=== PATIENT | female | born 1950 | race Caucasian/White ===

== ENCOUNTER → 2016-11-29 | Outpatient (CLI) | payer OTHER ==
[~2016-11-29] MED LIST: ASPI81TA25 PO; ATEN-173 PO; CHOL100010 PO; OMEG10007 PO
--- NOTE | 2016-11-29 15:55 | MAMMOGRAPHY REPORT ---
BILATERAL DIGITAL SCREENING MAMMOGRAM WITH CAD: 11/29/2016 CLINICAL HISTORY: Routine screening. Patient has no complaints. TECHNIQUE: Bilateral CC and MLO views were obtained. Current study was also evaluated with a Comput er Aided Detection (CAD) system. COMPARISON: Comparison is made to exams dated: 11/15/2015 mammogram, 10/06/2013 mammogram, 11/09/2014 ma mmogram, 10/01/2012 mammogram, 09/29/2011 mammogram, and 09/23/2010 mammogram - [facility] enter. BREAST COMPOSITION: There are scattered areas of fibroglandular density in both breasts. FINDINGS: A linear scar marker overlies the upper outer middle one third of the right breast. There are scattered stable benign-appearing microcalcifications bilaterally. A 5 mm circumscribed mass i n the anterior left breast is unchanged in size of a prior mammograms dating back to at least 2011, therefore likely benign. No new suspicious mass, architectural distortion or cluster of micro calcifications is seen. IMPRESSION: ACR BI-RADS CATEGORY 1: NEGATIVE There is no mammographic evidence of malignancy. A 1 year screening mammogram is recommended. The p atient will receive written notification of the results. Approximately 10% of breast cancers are not detected with mammography. A negative mammographic repor t should not delay biopsy if a clinically suggestive mass is present. Pamela Farnsworth M.D. ay/:11/29/2016 12:38:13 Dairy Farm Operator: Holly SMITH)(Annalee), [facility] letter sent: Normal 1/2 BI-RADS Code: ACR BI-RADS Category 1: Negative
== END | disposition home or self-care (01) ==
LOC: C.MAMM 11:34
PROVIDERS: ATTEND Family Medicine
DX: Z12.31 Encounter for screening mammogram for malignant neoplasm of breast (principal)

== ENCOUNTER → 2017-09-11 | Day surgery (SDC) | payer OTHER ==
[2017-08-14 11:23] VITALS: Ht 170.2 cm; Wt 104.5 kg
[~2017-09-11] VITALS: Ht 170.2 cm; Wt 104.5 kg
[~2017-09-11] MED LIST changes: +ATROPINE SULFATE 0.1 MG/ML 5ML SYR IV PRN; +BUPIVACAINE 0.5 % 5 MG/1 ML PF 10ML VIAL ONE; +CEFAZOLIN 2000MG IV PUSH 10 ML IV SCH; +CHOL1000 PO; -CHOL100010 PO; +FENTANYL CITRATE INJ 50 MCG/1 ML 2 ML VIAL ONE; +LACTATED RINGER'S 1000ML 1,000 ML IV SCH; +LIDOCAINE HCL 1% 20 ML VIAL ONE; +MIDAZOLAM HCL 1 MG/ML 2ML VIAL ONE; +ONDANSETRON INJ 2 MG/ML 2 ML VIAL IV PRN; +OXYCODONE/ACETAMINOPHEN 5-325 TAB PO PRN; +SODIUM CHLORIDE 0.9% 1000ML 1,000 ML IV SCH; +TRAM-10 PO
--- NOTE | 2017-09-11 06:40 | History & Physical Bridge - SC ---
H&P Re-Evaluation Bridge Note: I have examined the patient, reviewed the History & Physical and in the interval since the performance of the History & Physical I have noted the following changes of clinical significance: No changes noted
--- NOTE | 2017-09-11 07:08 | [facility] Post Operative Brief Note ---
Immediate Operative Summary Operative Date Sep 11, 2017. Pre-Operative Diagnosis Right Trigger Ring Finger Post-Operative Diagnosis Same Procedure(s) Performed Right Ring Trigger Finger Release Surgeon Dr. Renetta Bradshaw Webmethods Architect Surgeon(s) Hannah Potter PA-C Estimated Blood Loss 0 Findings as above Specimens None Anesthesia LOCAL IV SEDATION Complication(s) None Disposition
--- NOTE | 2017-09-11 07:12 | Discharge Instructions-SurgCtr ---
Discharge Instructions Date of Service Sep 11, 2017. Visit Reason for Visit: Right Ring Trigger Finger Discharge Discharge Diagnosis / Problem: SAME ABOVE Discharge Goals Goal(s): Decrease discomfort, Improve function Activity Recommendations Activity Limitations: as noted below Lifting Limitations: gradually increase as tolerated Exercise/Sports Limitations: until after follow-up appointment Shower/Bathe: tomorrow Anesthesia . Post Anesthesia Instructions: If you have had General Anesthesia or IV Sedation: * Do not drive today. * Resume driving when surgeon permits. * Do not make important decisions or sign legal documents today. * Call surgeon for: 1. Temperature elevations greater than 101 degrees F. 2. Uncontrollable pain. 3. Excessive bleeding. 4. Persistent nausea and vomiting. 5. Medication intolerance (nausea, vomiting or rash). * For nausea and vomiting use only clear liquids such as: tea, soda, bouillon until nausea subsides, then gradually increase diet as tolerated. * If you have any concerns or questions, call your surgeon's office. If physician is unavailable and it is an emergency, call 911 or go to the nearest emergency room. . Instructions / Follow-Up Instructions / Follow-Up MEDICATIONS: * Resume previous medications unless instructed otherwise by your surgeon. * Always take pain medication on a full stomach or with food to avoid upset stomach. * Do not drink alcohol or drive while taking narcotics. * Ibuprofen or Tylenol may be taken if narcotic not needed. SPECIAL CARE INSTRUCTIONS: __ None _X_ Keep extremity elevated and iced x 48 hours; apply ice 20-30 minutes 8-10 times/day. May remove at night. __ Sling __24 hrs/day __ Remove at night __ Shoulder Immobilizer __ 24 hrs/day __ Remove at night _X_ Dressing __ Maintain until seen in office, may shower with plastic over site _X_ Remove dressings in 24-48 hours and then may shower _X_ Cover incisions with band-aids after showering __ Do not remove steri-strips Call physician if chills or temperature rises above 102 degrees or pain unrelieved by prescribed pain medications at . . Diet Recommendations Home Diet: resume previous diet Procedures Procedures Performed: Right Ring Trigger Finger Release Pending Studies Studies pending at discharge: no Medical Emergencies . Who to Call and When: Medical Emergencies: If at any time you feel your situation is an emergency, please call 911 immediately. . Non-Emergent Contact Non-Emergency issues call your: Primary Care Provider . . "Provider Documentation" section prepared by Von Potter. .
--- NOTE | 2017-09-11 07:31 | Anesthesia Progress Nt - [facility] ---
Anesthesia Post Op Note Date & Time Sep 11, 2017 at 07:30 Vital Signs Pain Intensity: 0 Vital Signs Past 12 Hours Date Time Temp Pulse Resp B/P (MAP) Pulse Ox O2 Delivery O2 Flow Rate FiO2 09/11/17 07:08 36.1 58 16 112/72 (85) 93 Room Air 09/11/17 06:27 36.4 65 16 154/88 (110) 95 Room Air Notes Mental Status: alert / awake / arousable, participated in evaluation Pt Amnestic to Procedure: Yes Nausea / Vomiting: adequately controlled Pain: adequately controlled Airway Patency, RR, SpO2: stable & adequate BP & HR: stable & adequate Hydration State: stable & adequate Anesthetic Complications: no major complications apparent
[2017-09-11 07:33] VITALS: BP 134/87; PULSE 58; O2SAT 94
--- NOTE | 2017-09-11 08:41 | OPERATIVE REPORT ---
DATE OF OPERATION: 09/11/2017 PREOPERATIVE DIAGNOSIS: Right ring trigger finger. POSTOPERATIVE DIAGNOSIS: Same. PROCEDURE PERFORMED: Release of A1 salma, right ring finger. SURGEON: Vernon Bradshaw MD. ASBESTOS PIPE SUPERVISOR: Von Potter PA-C. ANESTHESIOLOGIST: Galo Long MD. ANESTHESIA: Local with IV sedation. DRAINS: None. COMPLICATIONS: None. CONDITION: The patient tolerated the procedure well and returned to the recovery room in apparent satisfactory condition. INDICATIONS FOR SURGERY: Nicolle is a 67-year-old female, who has had triggering of the right ring finger over months now. It has gotten progressively worse and has elected to go ahead and proceed with surgery. Procedure, expected outcomes, side effects, and risks were all explained in detail. DESCRIPTION OF PROCEDURE: The patient was taken to the OR at which time she was placed supine on the operating table, given IV sedation. The right hand was prepped and draped in the usual sterile fashion for surgery. We infiltrated the anticipated incision site with 1% Xylocaine. Once this had taken effect, we went ahead and exsanguinated the hand and put the forearm tourniquet up to 250 mmHg. We then made a transverse incision over the A1 salma using loupe magnification. We dissected down and exposed the A1 salma with an 11 blade and tenotomy scissors were used to divide it. The finger was taken through a range of motion, no longer triggering. The wound then was copiously irrigated. The skin was closed with interrupted 4-0 nylon sutures. Marcaine without epinephrine was placed in the skin edges. Placed a sterile dressing of Xeroform, 2 x 2, Sof-Rol and Coban, and returned to the recovery room in apparent satisfactory condition. I attest to the content of the Intraoperative Record and any orders documented therein. Any exception s are noted below.
== END | disposition home or self-care (01) ==
LOC: X.SURG 06:11
PROVIDERS: ATTEND Orthopaedic Surgery
DX: M65.341 Trigger finger, right ring finger (principal); I10 Essential (primary) hypertension; Z85.6 Personal history of leukemia; M19.90 Unspecified osteoarthritis, unspecified site; Z96.651 Presence of right artificial knee joint; Z98.890 Other specified postprocedural states; Z88.2 Allergy status to sulfonamides; Z88.1 Allergy status to other antibiotic agents

== ENCOUNTER → 2017-11-30 | Outpatient (CLI) | payer OTHER ==
[~2017-11-30] MED LIST changes: -ATROPINE SULFATE 0.1 MG/ML 5ML SYR IV PRN; -BUPIVACAINE 0.5 % 5 MG/1 ML PF 10ML VIAL ONE; -CEFAZOLIN 2000MG IV PUSH 10 ML IV SCH; -FENTANYL CITRATE INJ 50 MCG/1 ML 2 ML VIAL ONE; -LACTATED RINGER'S 1000ML 1,000 ML IV SCH; -LIDOCAINE HCL 1% 20 ML VIAL ONE; -MIDAZOLAM HCL 1 MG/ML 2ML VIAL ONE; -ONDANSETRON INJ 2 MG/ML 2 ML VIAL IV PRN; -OXYCODONE/ACETAMINOPHEN 5-325 TAB PO PRN; -SODIUM CHLORIDE 0.9% 1000ML 1,000 ML IV SCH
--- NOTE | 2017-11-30 15:05 | MAMMOGRAPHY REPORT ---
BILATERAL DIGITAL SCREENING MAMMOGRAM TOMOSYNTHESIS WITH CAD: 11/30/2017 CLINICAL HISTORY: Routine screening. Patient has no complaints. TECHNIQUE: Breast tomosynthesis in addition to standard 2D mammography was performed. Current study was also evaluated with a Computer Aided Detection (CAD) system. COMPARISON: Comparison is made to exams dated: 11/29/2016 mammogram, 11/15/2015 mammogram, 11/09/2014 ma mmogram, 10/06/2013 mammogram, 10/01/2012 mammogram, and 09/29/2011 mammogram - [facility]. BREAST COMPOSITION: There are scattered areas of fibroglandular density in both breasts. FINDINGS: No suspicious masses, calcifications, or areas of architectural distortion are noted in ei ther breast. There has been no significant interval change compared to prior exams. Scattered bilater al benign-appearing calcifications are not significantly changed. A linear scar marker denotes a sca r on the right upper outer breast. Mild bilateral nodularity is stable. IMPRESSION: ACR BI-RADS CATEGORY 2: BENIGN There is no mammographic evidence of malignancy. A 1 year screening mammogram is recommended. The pa tient will receive written notification of the results. Approximately 10% of breast cancers are not detected with mammography. A negative mammographic report should not delay biopsy if a clinically suggestive mass is present. Pamela Dowell M.D. /:11/30/2017 12:53:31 Knot Cutter: Nicole EISENBERG(Geovani)(Annalee)([place]), [facility] letter sent: Normal 1/2 BI-RADS Code: ACR BI-RADS Category 2: Benign
== END | disposition home or self-care (01) ==
LOC: C.MAMM 11:57
PROVIDERS: ATTEND Family Medicine
DX: Z12.31 Encounter for screening mammogram for malignant neoplasm of breast (principal)

== ENCOUNTER 2022-11-16 06:41 | Observation (INO) ==
--- NOTE | 2022-07-14 08:58 | PAT Medication Instructions ---
Medication Instructions Date of Service July 14, 2022 Home Medications atenolol 25 mg tablet 25 mg PO QAM clotrimazole-betamethasone 1 %-0.05 % topical cream 1 applic topical BID PRN ud estradiol 0.01% (0.1 mg/gram) vaginal cream 1 appful vaginal DAILY PRN ud triamcinolone acetonide 0.1 % topical cream 1 applic topical DAILY PRN ud ibuprofen 200 mg capsule (Advil Liqui-Gel) 800 mg PO QAM ASK your surgeon for instructions ibuprofen 200 mg capsule (Advil Liqui-Gel) 800 mg PO QAM STOP taking 24 hours before surgery clotrimazole-betamethasone 1 %-0.05 % topical cream 1 applic topical BID PRN ud estradiol 0.01% (0.1 mg/gram) vaginal cream 1 appful vaginal DAILY PRN ud triamcinolone acetonide 0.1 % topical cream 1 applic topical DAILY PRN ud DO NOT take the morning of surgery atenolol 25 mg tablet 25 mg PO QAM Other Notes If you have any questions please call us at [phone] or [phone] or [phone] or [phone]
--- NOTE | 2022-07-19 10:32 | Anesthesiology Consultation ---
Date of Service July 19, 2022 Assessment & Plan (1) Encounter for pre-operative examination: - PCP clearance 07/05/22 [facility]: "...pre-operative medical clearance...General anesthesia. Hx of problems problems with anesthesia: DENIES. METS: able to walk on 1 city blaock [sic] on flat ground without sob,. Able to ascend 1 flight of stairs without sob...no medical contraindication for the proposed surgery and anesthesia..." - Pt verbalized full understanding to take atenolol DOS, this was also written/corrected on medication instructions provided at today's visit. She correctly repeated this back to myself, denied questions or concerns. - Outpatient joint assessment: Patient is currently scheduled for inpatient pathway. If re-evaluated pending system levels during current pandemic/surgeon requests outpatient pathway, patient is acceptable candidate for outpatient joint program from anesthesia standpoint pending surgeon's office assessment of pt motivation/support/completion of same day joint program preop requirements. Chart Review Chart Review: Acceptable Risk for Surgery and Patient seen in Pre Admission Testing Teaching & Discussion Pre-Anesthesia Teaching/Discussion Notes: Instructed NPO after midnight before surgery, except medications with 15 cc of water. Medication instructions provided according to the PAT guidelines. History Surgery Operation Date: 08/03/22 08:15 Proposed Procedures p Left Total Knee Arthroplasty - Vernon Hoyt MD Height/Weight Height: 5 ft 7 in Weight: 117.2 kg Allergies Allergy/AdvReac Type Severity Reaction Status Date / Time clarithromycin Allergy Intermediate RASH/HIVES Verified 07/14/22 08:03 Iodinated Contrast Media Allergy Intermediate HIVES/ITCHING Verified 07/14/22 08:03 ("CARDIAC CT SCAN DYE") Sulfa (Sulfonamide Allergy Intermediate rash Verified 07/14/22 08:03 Antibiotics) tramadol AdvReac "weird in Verified 07/19/22 10:36 my head" Medications Home Medications Medication Instructions Recorded Confirmed Last Taken atenolol 25 mg tablet 25 mg PO QAM 11/04/18 07/14/22 04/16/19 clotrimazole-betamethasone 1 1 applic topical BID PRN ud 11/02/20 07/14/22 Unknown %-0.05 % topical cream estradiol 0.01% (0.1 mg/gram) 1 appful vaginal DAILY PRN ud 09/30/21 07/14/22 Unknown vaginal cream triamcinolone acetonide 0.1 % 1 applic topical DAILY PRN ud 09/30/21 07/14/22 Unknown topical cream ibuprofen 200 mg capsule (Advil 800 mg PO QAM 04/18/22 07/14/22 Unknown Liqui-Gel) Past Medical History Medical History (Updated 07/19/22 @ 10:37 by [place] Live PA-C) GERD (gastroesophageal reflux disease) controlled, stable per pt History of cardiac murmur as a child No significant valvular disease per 04/2019 DSE 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 Hypertension controlled, stable per pt Pre-diabetes pre-op A1c below 6.5% Sinusitis recently finished abx. residual symptoms of nasal congestion, following with PCP and has upcoming CT 08/01 [facility]. Spinal stenosis L5-S1 Patient denies h/o stroke, seizures, heart attack, heart failure, blood clots or blood transfusions. Exercise / Class Metabolic Activity II 4-5 Yardwork/Stairs/Walk up hill (denies CP or SOB with 1 FOS) Past Family History Family History Brother Family history of diabetes mellitus Sister Family history of diabetes mellitus Breast cancer Mother Stomach cancer History of coronary artery stent placement COPD (chronic obstructive pulmonary disease) Hiatal hernia Father Prostate cancer Other No family history of adverse response to anesthesia Denies family history of Ovarian cancer Myocardial infarction Colorectal cancer Past Surgical History Surgical History (Updated 07/19/22 @ 10:39 by Indiana Live PA-C) History of arthroscopic knee surgery BL History of hand surgery bilat History of knee replacement procedure of right knee History of nasal surgery hx disorder "dissolved cartilage" in childhood, "nose rebuilt" Hx of ventral hernia repair S/P trigger finger release Past Anesthesia History No Hx of Anesthesia Complications and No Family Hx of Anesthesia Complications History of PONV No Hx of PONV and No Hx of Motion Sickness Social History Smoking Status: Never smoker Do You Dip or Chew Tobacco: No Hx Alcohol Use: Yes alcohol intake frequency: holidays/special occasions only Hx Substance Use: No substance use type: does not use Review of Systems Patient denies chest pain, shortness of breath, dyspnea on exertion, snoring, witnessed apneas, fever, chills, cough, wheezing, or palpitations. Physical Exam Vital Signs Vitals BP 128/72 P 80 TEMP 97.6 SP02 96% on RA RESP 18 Physical Full cervical extension range of motion without pain TMD 3.5 finger breadths Mallampati Score 1 Dentition: intact, permanent bridge lower front, multiple caps/crowns; denies chipped or loose teeth or implants Lungs: normal respiratory effort. Clear throughout to auscultation, no adventitious breath sounds Cardiac: regular rate and rhythm, no murmurs noted Carotid arteries: negative bruit bilat Lab Results Anesthesia Preop Results Results Anesthesia Widget: PT 10.3 Seconds (9.0-12.0) 07/19/22 PTT 26.2 Seconds (21.0-31.0) 07/19/22 INR 1.0 (0.9-1.1) 07/19/22 Urine Color Dark Yellow 07/19/22 Urine Appearance Clear (Clear) 07/19/22 Urine pH 6.0 (4.5-7.5) 07/19/22 Urine Specific [place] 1.029 (1.000-1.030) 07/19/22 Urine Protein Negative (Negative) 07/19/22 Urine Glucose (UA) Negative (Negative) 07/19/22 Urine Ketones Negative (Negative) 07/19/22 Urine Blood Negative (Negative) 07/19/22 Urine Nitrite Negative (Negative) 07/19/22 Urine Bilirubin Negative (Negative) 07/19/22 Urine Urobilinogen Negative (Negative) 07/19/22 Urine Leukocyte Esterase 1+ (Negative) H 07/19/22 Urine WBC (Auto) 1-5 /hpf (0-5) 07/19/22 Urine RBC (Auto) 5-10 /hpf (0-4) H 07/19/22 Urine Hyaline Casts (Auto) 1-5 /lpf (0-5) 07/19/22 Urine Epithelial Cells (Auto) >30 /lpf (0-5) H 07/19/22 Urine Bacteria (Auto) Negative (Negative) 07/19/22 Blood Type B Positive 07/19/22 Antibody Screen NEGATIVE 07/19/22 Testing Laboratory Results 07/05/2022 WBC: 9.5 H/H: 15/49 PLATELETS: 278 SODIUM: 139 POTASSIUM: 4.8 CHLORIDE: 100 CO2: 30 BUN: 18 CREATININE: 0.9 GLUCOSE: 86 A1c: 5.7% Electrocardiogram Date: 07/05/22 NSR, rate 76 bpm Stress Test Date: 04/21/19 Pharmacologic MPHR 103% Negative for inducible ischemia EF 55-60% No LV wall motion abnormality Grade I diastolic dysfunction No significant valvular pathology
--- NOTE | 2022-07-20 15:32 | History & Physical Report ---
Date of Service July 20, 2022 Assessment & Plan (1) Left knee DJD: Plan: PRE-OP Diagnosis: Left knee osteoarthritis Planned Procedure: Left total knee arthroplasty Plan: Patient is scheduled to undergo this procedure at the [facility] with a 23-hour observation admission on , August 03, [address] Hoyt. Risks and complications of the procedure such as: Infection, bleeding, pain, scarring, nerve blood vessel damage, weakness, wound problems, stiffness, incomplete relief of symptoms, hardware failure, hardware loosening, wear, fracture, tendon or ligament injury, blood clots, embolism, heart attack, stroke and were explained to the patient at her visit today. Informed consent to perform the procedure was obtained. Patient also understands risks of proceeding with surgical invention during the COVID-19 pandemic. Currently she is asymptomatic and has not been in contact with anyone positive for the virus recently. Patient is scheduled to meet with anesthesia later this morning while there she will obtain a PT/INR, blood type and screen, urinalysis, urine culture and sensitivity and a nasal culture for MRSA. We have already obtained preoperative medical clearance from the patient's primary care provider Dr. Jack. Her CBC, CMP, EKG, hemoglobin A1c are all up-to-date and were ordered by Dr. Jack at her preoperative visit. During today's visit we reviewed the total knee packet. We discussed lectures offered by [facility] in regards to joint replacement surgery. Patient attended one of the sessions before she had her right knee replaced. She states that she has a walker she will bring with her on the day of the procedure. Patient states she already has a handicap placard for her vehicle. We discussed antibiotic use before dental procedures after having joint replacement surgery. Patient states that she will do in-home physical therapy for the first 2 weeks before transitioning to outpatient physical therapy when she meets with me for her 2- week postoperative follow-up visit on August 18 at 1 PM. I advised the patient that she will be kept overnight at the hospital and we will discharge her with prescriptions for narcotic pain medication and anti-inflammatory. We will have her use an 81 mg aspirin twice daily for blood clot prevention for the first 30 days postoperatively. Patient verbalizes understanding of all information provided during today's visit. She thanks for the care that she received. If she has questions or concerns prior to her surgery, she will contact clinic. This chart was completed utilizing [employer] voice recognition software. Grammatical errors, random word insertions, pronoun errors, and in complete sentences are an occasional consequence of the system. Any questions or concerns about the content, text, or information contained within the body of this dictation should be addressed directly to the physician for clarification. History of Present Illness Chief Complaint: Chief Complaint: Left knee pain Primary Care Provider: Eron Jack DO History of Present Illness (including history relevant to procedure): This 71-year-old female presents clinic today for preoperative history and physical. Patient has had pain off and on her left knee for many years. States that about a year ago the pain became much worse. 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 She states that in her free time she did do a lot of walking with which seem to exacerbate her pain and she started to wear a knee brace. Patient states that she has had corticosteroid injections and then physical therapy. She is also used nonsteroidal agents but her knee pain persists. Review Of Systems: A 12 point review of systems is performed and is unremarkable except for those things stated in the HPI and past medical history. Past Medical History: Problems: Mass of right hand Hypertension GERD Ventral hernia Obesity History of leukemia Procedure History Procedure Procedure Date Comments Nasal reconstruction Hernia repair Hand surgery Right total knee arthroplasty Allergies and Sensitivities: iodinated radiocontrast dyes(unknown) traMADol(unknown) sulfa drugs(unknown) Social history: Patient states that she consumes alcohol approximately 1 time per year. She denies tobacco or illicit drug use Family history: Hyperlipidemia, COPD, cancer and leukemia Current Home Meds: (Last Updated 07/19 09:04) atenolol (atenolol 25 mg oral tablet) cholecalciferol (Vitamin D3) Initial Wt: 07/19 118.0 kg 260 lb Allergies Allergy/AdvReac Type Severity Reaction Status Date / Time clarithromycin Allergy Intermediate RASH/HIVES Verified 07/14/22 08:03 Iodinated Contrast Media Allergy Intermediate HIVES/ITCHING Verified 07/14/22 08:03 ("CARDIAC CT SCAN DYE") Sulfa (Sulfonamide Allergy Intermediate rash Verified 07/14/22 08:03 Antibiotics) tramadol AdvReac "weird in Verified 07/19/22 10:36 my head" Home Medications Medication Instructions Recorded Confirmed Type atenolol 25 mg tablet 25 mg PO QAM 11/04/18 07/14/22 History clotrimazole-betamethasone 1 1 applic topical BID PRN ud 11/02/20 07/14/22 History %-0.05 % topical cream estradiol 0.01% (0.1 mg/gram) 1 appful vaginal DAILY PRN ud 09/30/21 07/14/22 History vaginal cream triamcinolone acetonide 0.1 % 1 applic topical DAILY PRN ud 09/30/21 07/14/22 History topical cream ibuprofen 200 mg capsule (Advil 800 mg PO QAM 04/18/22 07/14/22 History Liqui-Gel) Past Med/Surg History Medical History GERD (gastroesophageal reflux disease) controlled, stable per pt History of cardiac murmur as a child No significant valvular disease per 04/2019 DSE 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 Hypertension controlled, stable per pt Pre-diabetes pre-op A1c below 6.5% Sinusitis recently finished abx. residual symptoms of nasal congestion, following with PCP and has upcoming CT 08/01 [facility]. Spinal stenosis L5-S1 Surgical History History of arthroscopic knee surgery BL History of hand surgery bilat History of knee replacement procedure of right knee History of nasal surgery hx disorder "dissolved cartilage" in childhood, "nose rebuilt" Hx of ventral hernia repair S/P trigger finger release Family History Brother Family history of diabetes mellitus Sister Family history of diabetes mellitus Breast cancer Mother Stomach cancer History of coronary artery stent placement COPD (chronic obstructive pulmonary disease) Hiatal hernia Father Prostate cancer Other No family history of adverse response to anesthesia Denies family history of Ovarian cancer Myocardial infarction Colorectal cancer Social History Smoking Status: Never smoker Second Hand Exposure: No; Hx Alcohol Use: Yes Hx Substance Use: No Preferred Language: Bengali Communication Ability: Effective Visual Impairment: No Limitations Hearing Ability: Normal Drilling Plant Operator Required: No Beliefs That Will Affect Care: None marital status: Single Current Living Situation: Alone current occupational status: employed current occupation: self- energy healer Feels Safe at Home: Yes Childhood Exposure to Second-Hand Smoke: Yes Diet Comment: regular Dental Care, Regularly: No Physical Activity Frequency: 5-6 Times per Week Seatbelt Use: always Sunscreen Use: Yes Assistive Devices: Glasses Review of Systems All systems reviewed & are unremarkable except as noted in Subjective Physical Exam Physical Exam: Physical Exam: (relevant to the procedure, including heart and lung evaluation) General: Alert and oriented x3 with proper grooming and hygiene Eyes: Pupils are equal and reactive to light with accommodation. Extraocular lids are intact Throat: Deferred due to COVID-19 precautions Cardiac: Regular rate and rhythm with no murmurs or gallops appreciated Lungs: Clear to auscultation throughout with no wheezing, rales or rhonchi Abdomen: Obese, nondistended, nontender with NABS Extremities: Left knee; range of motion is from 2 degrees of extension to about 110 degrees of flexion. She experiences medial and lateral joint tenderness when knee is palpated in flexed position. There is audible crepitation with passive range of motion. Patient has no laxity with varus or valgus stressing. AP drawer sign Brian test are negative. Her patella is not mobile due to arthritic change within the patellofemoral joint. She has neurovascular intact in the left lower extremity. Neuro: Cranial nerves II through XII intact no motor or sensory deficit Skin: Normal in appearance no open skin areas or discharge Results & Data ([facility]) Diagnostic Findings Studies (relevant to the procedure): X-rays done include 3 views of the left knee. These are compared with her prior films done back in June. She continues to have [id number] arthritis. Perhaps slightly worsened from her previous exam, although could be projectional.
--- NOTE | 2022-10-25 15:55 | History & Physical Report ---
Date of Service October 25, 2022 Assessment & Plan (1) Left knee DJD: Plan: PRE-OP Diagnosis: Left Knee Osteoarthritis Planned Procedure: Left Total Knee Arthroplasty Plan: Patient is scheduled to undergo this procedure at the [facility] with a 23-hour observation admission on , November 16, [address] Hoyt. Risks and complications of the procedure such as: Infection, bleeding, pain, scarring, nerve blood vessel damage, weakness, wound problems, stiffness, incomplete relief of symptoms, hardware failure, hardware loosening, wear, fracture, tendon or ligament injury, blood clots, embolism, heart attack, stroke and were explained to the patient at her visit today. Informed consent to perform the procedure was obtained. Patient also understands risks of proceeding with surgical invention during the COVID-19 pandemic. Currently she is asymptomatic and has not been in contact with anyone positive for the virus recently. Patient is not maintained with anesthesia but we will need to obtain an updated CBC, CMP, PT/INR, urinalysis, urine culture and sensitivity, hemoglobin A1c and a nasal culture for MRSA. We will obtain preoperative medical clearance from the patient primary care provider along with her oral surgeon. During today's visit we reviewed the total knee packet. She states that she has a walker she will bring with her on the day of the procedure. Patient states she already has a handicap placard for her vehicle. We discussed antibiotic use before dental procedures after having joint replacement surgery. Patient states that she will do in-home physical therapy for the first 2 weeks before transitioning to outpatient physical therapy when she meets with me for her 2-week postoperative follow-up visit on November 29, 2022 @ 10:00 AM. I advised the patient that she will be kept overnight at the hospital and we will discharge her with prescriptions for narcotic pain medication and anti-inflammatory. We will have her use an 81 mg aspirin twice daily for blood clot prevention for the first 30 days postoperatively. Patient verbalizes understanding of all information provided during today's visit. She thanks for the care that she received. If she has questions or concerns prior to her surgery, she will contact clinic. This chart was completed utilizing [employer] voice recognition software. Grammatical errors, random word insertions, pronoun errors, and in complete sentences are an occasional consequence of the system. Any questions or concerns about the content, text, or information contained within the body of this dictation should be addressed directly to the physician for clarification. History of Present Illness Chief Complaint: Chief Complaint: Left Knee Pain Primary Care Provider: Eron Jack DO HPI: This 72-year-old female presents clinic today for preoperative history and physical. Patient was initially scheduled to undergo surgery on August 03, 2022 but it was canceled due to her having a dental abscess. Patient has had pain off and on her left knee for many years. States that about a year ago the pain became much worse. 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 Patient states that she has had corticosteroid injections and then physical therapy. She is also used nonsteroidal agents but her knee pain persists. Review Of Systems: A 12 point review of systems is performed and is unremarkable except for those things stated in the HPI and past medical history. Past Medical History: Problems: Mass of right hand Hypertension GERD Ventral hernia Obesity History of leukemia Procedure History Procedure Procedure Date Comments Nasal reconstruction Hernia repair Hand surgery Right total knee arthroplasty Allergies and Sensitivities: iodinated radiocontrast dyes(unknown) traMADol(unknown) sulfa drugs(unknown) Current Home Meds: (Last Updated 10/25 08:54) atenolol (atenolol 25 mg oral tablet) bifidobacterium-lactobacillus (Probiotic Formula oral capsule) cholecalciferol (Vitamin D3) cholecalciferol (Vitamin D3 50 mcg (2000 intl units) oral tablet, chewable) ibuprofen (IBU) 600 mg menaquinone (K2 90 mcg/0.5 mL oral liquid) Allergies Allergy/AdvReac Type Severity Reaction Status Date / Time clarithromycin Allergy Intermediate RASH/HIVES Verified 10/16/22 10:44 Iodinated Contrast Media Allergy Intermediate HIVES/ITCHING Verified 10/16/22 10:44 ("CARDIAC CT SCAN DYE") Sulfa (Sulfonamide Allergy Intermediate rash Verified 10/16/22 10:44 Antibiotics) tramadol AdvReac "weird in Verified 10/16/22 10:44 my head" Home Medications Medication Instructions Recorded Confirmed Type atenolol 25 mg tablet 25 mg PO QAM 11/04/18 10/16/22 History clotrimazole-betamethasone 1 1 applic topical BID PRN ud 11/02/20 10/16/22 History %-0.05 % topical cream estradiol 0.01% (0.1 mg/gram) 1 appful vaginal DAILY PRN ud 09/30/21 10/16/22 History vaginal cream triamcinolone acetonide 0.1 % 1 applic topical DAILY PRN ud 09/30/21 10/16/22 History topical cream ibuprofen 200 mg capsule (Advil 800 mg PO QAM 04/18/22 10/16/22 History Liqui-Gel) calcium-vitamin D3-vitamin K 500 tab PO 10/16/22 10/16/22 History mg-1,000 unit-40 mcg chewable tablet lactobacillus combination no.9 4 4,000 mmu cells PO DAILY 10/16/22 10/16/22 History billion cell capsule (Adult 50 Plus Probiotic) Past Med/Surg History Medical History GERD (gastroesophageal reflux disease) controlled, stable per pt History of cardiac murmur as a child No significant valvular disease per 04/2019 DSE 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 Hypertension controlled, stable per pt Pre-diabetes pre-op A1c below 6.5% Sinusitis recently finished abx. residual symptoms of nasal congestion, following with PCP and has upcoming CT 08/01 [facility]. Spinal stenosis L5-S1 Surgical History History of arthroscopic knee surgery BL History of hand surgery bilat History of knee replacement procedure of right knee History of nasal surgery hx disorder "dissolved cartilage" in childhood, "nose rebuilt" Hx of ventral hernia repair S/P trigger finger release Family History Brother Family history of diabetes mellitus Sister Family history of diabetes mellitus Breast cancer Mother Stomach cancer History of coronary artery stent placement COPD (chronic obstructive pulmonary disease) Hiatal hernia Father Prostate cancer Other No family history of adverse response to anesthesia Denies family history of Ovarian cancer Myocardial infarction Colorectal cancer Social History Smoking Status: Never smoker Second Hand Exposure: No; Hx Alcohol Use: No Hx Substance Use: No Preferred Language: Jordanian Communication Ability: Effective Visual Impairment: No Limitations Hearing Ability: Normal Hot Wire Glass Tube Cutter Required: No Beliefs That Will Affect Care: None marital status: Single Current Living Situation: Alone current occupational status: employed current occupation: self- energy healer Feels Safe at Home: Yes Childhood Exposure to Second-Hand Smoke: Yes Diet Comment: regular Dental Care, Regularly: No Physical Activity Frequency: 5-6 Times per Week Seatbelt Use: always Sunscreen Use: Yes Assistive Devices: Glasses Review of Systems All systems reviewed & are unremarkable except as noted in Subjective Physical Exam Physical Exam: Physical Exam: (relevant to the procedure, including heart and lung evaluation) General: Alert and oriented x3 with proper grooming and hygiene Eyes: Pupils are equal and reactive to light with accommodation. Extraocular lids are intact Throat: Posterior oropharynx clear with some edema, erythema or exudate. Dentition is appropriate. Cardiac: Regular rate and rhythm with no murmurs or gallops appreciated Lungs: Clear to auscultation throughout with no wheezing, rales or rhonchi Abdomen: Obese, nondistended, nontender with NABS Extremities: Left knee; range of motion is from 2 degrees of extension to about 110 degrees of flexion. She experiences medial and lateral joint tenderness when knee is palpated in flexed position. There is audible crepitation with passive range of motion. Patient has no laxity with varus or valgus stressing. AP drawer sign Brian test are negative. Her patella is not mobile due to arthritic change within the patellofemoral joint. She has neurovascular intact in the left lower extremity. Neuro: Cranial nerves II through XII intact no motor or sensory deficit Skin: Normal in appearance no open skin areas or discharge Results & Data ([facility]) Diagnostic Findings Studies (relevant to the procedure): X-rays done include 3 views of the left knee. These are compared with her prior films done back in June. She continues to have [id number] arthritis. Perhaps slightly worsened from her previous exam, although could be projectional.
--- NOTE | 2022-11-09 08:39 | Anesthesiology Consultation ---
Date of Service November 09, 2022 Assessment & Plan (1) Encounter for pre-operative examination: - medical clearance 10/12/22: "...is patient medically cleared for surgery...yes..." - Outpatient joint assessment: Patient is currently scheduled for inpatient pathway. If re-evaluated pending system levels during current pandemic/surgeon requests outpatient pathway, patient is acceptable candidate for outpatient joint program from anesthesia standpoint pending surgeon's office assessment of pt motivation/support/completion of same day joint program preop requirements. - COVID screening: Per scrub woman on 11/09/2022: Travel screen negative, no known COVID-19 positive contacts or current COVID-19 related symptoms in past 2 weeks. To surgeon's discretion if preop COVID testing is needed. Chart Review Chart Review: Acceptable Risk for Surgery and Patient NOT seen in Pre Admission Testing History Surgery Operation Date: 08/03/22 08:15 Proposed Procedures p Left Total Knee Arthroplasty - Vernon Hoyt MD Operation Date: 11/16/22 09:15 Proposed Procedures p Left Total Knee Arthroplasty - Vernon Hoyt MD Height/Weight Height: 5 ft 7 in Weight: 112.945 kg Allergies Allergy/AdvReac Type Severity Reaction Status Date / Time clarithromycin Allergy Intermediate RASH/HIVES Verified 11/09/22 07:58 Iodinated Contrast Media Allergy Intermediate HIVES/ITCHING Verified 11/09/22 07:58 ("CARDIAC CT SCAN DYE") Sulfa (Sulfonamide Allergy Intermediate rash Verified 11/09/22 07:58 Antibiotics) tramadol AdvReac "weird in Verified 11/09/22 07:58 my head" Medications Home Medications Medication Instructions Recorded Confirmed Last Taken atenolol 25 mg tablet 25 mg PO QAM 11/04/18 11/09/22 04/16/19 clotrimazole-betamethasone 1 1 applic topical BID PRN ud 11/02/20 11/09/22 Unknown %-0.05 % topical cream estradiol 0.01% (0.1 mg/gram) 1 appful vaginal DAILY PRN ud 09/30/21 11/09/22 Unknown vaginal cream triamcinolone acetonide 0.1 % 1 applic topical DAILY PRN ud 09/30/21 11/09/22 Unknown topical cream ibuprofen 200 mg capsule (Advil 800 mg PO QAM 04/18/22 11/09/22 Unknown Liqui-Gel) calcium-vitamin D3-vitamin K 500 1 tab PO QAM 10/16/22 11/09/22 Unknown mg-1,000 unit-40 mcg chewable tablet (Citracal-D3 Soft Chew) lactobacillus combination no.9 4 4,000 mmu cells PO DAILY 10/16/22 11/09/22 Unknown billion cell capsule (Adult 50 Plus Probiotic) Medical Marijuana 1 dose PO UD PRN Pain 11/09/22 11/09/22 Unknown amino acids 1 tab PO QAM 11/09/22 11/09/22 Unknown Past Medical History Medical History (Updated 11/09/22 @ 08:32 by [place] Live PA-C) GERD (gastroesophageal reflux disease) controlled, stable per pt History of cardiac murmur as a child No significant valvular disease per 04/2019 DSE 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 Hypertension controlled, stable per pt Pre-diabetes pre-op A1c below 6.5% Sinusitis 07/25 Spinal stenosis L5-S1 Past Family History Family History Brother Family history of diabetes mellitus Sister Family history of diabetes mellitus Breast cancer Mother Stomach cancer History of coronary artery stent placement COPD (chronic obstructive pulmonary disease) Hiatal hernia Father Prostate cancer Other No family history of adverse response to anesthesia Denies family history of Ovarian cancer Myocardial infarction Colorectal cancer Past Surgical History Surgical History History of arthroscopic knee surgery BL History of hand surgery bilat History of knee replacement procedure of right knee History of nasal surgery hx disorder "dissolved cartilage" in childhood, "nose rebuilt" Hx of ventral hernia repair S/P trigger finger release Social History Smoking Status: Never smoker Do You Dip or Chew Tobacco: No Hx Alcohol Use: No alcohol intake frequency: holidays/special occasions only Hx Substance Use: Yes (medical marijuana- oil/tincture- uses prn -advised) substance use type: marijuana Last Used Substance Other:: 11/08/22 Lab Results Anesthesia Preop Results Results Anesthesia Widget: WBC 8.64 K/ul (4.8-10.8) 10/28/22 Hgb 15.7 g/dl (12.0-16.0) 10/28/22 Hct 47.8 % (37.0-47.0) H 10/28/22 Plt 291 K/uL (130-400) 10/28/22 Na 138 mmol/L (136-145) 10/28/22 K 4.0 mmol/L (3.5-5.1) 10/28/22 Cl 102 mmol/L (98-107) 10/28/22 CO2 31 mmol/L (21-32) 10/28/22 BUN 11 mg/dl (6-23) 10/28/22 Creat 0.84 mg/dl (0.6-1.2) 10/28/22 Glucose Level 100 mg/dl (70-99(Fasting)) H 10/28/22 PT 10.2 Seconds (9.0-12.0) 10/28/22 INR 1.0 (0.9-1.1) 10/28/22 HA1c 5.8 % (4.5-5.6) H 10/28/22 Urine Color Yellow 10/28/22 Urine Appearance Clear (Clear) 10/28/22 Urine pH 7.5 (4.5-7.5) 10/28/22 Urine Specific [place] 1.012 (1.000-1.030) 10/28/22 Urine Protein Negative (Negative) 10/28/22 Urine Glucose (UA) Negative (Negative) 10/28/22 Urine Ketones Negative (Negative) 10/28/22 Urine Blood Trace (Negative) H 10/28/22 Urine Nitrite Negative (Negative) 10/28/22 Urine Bilirubin Negative (Negative) 10/28/22 Urine Urobilinogen Negative (Negative) 10/28/22 Urine Leukocyte Esterase Negative (Negative) 10/28/22 Urine WBC (Auto) 0 /hpf (0-5) 10/28/22 Urine RBC (Auto) 0-4 /hpf (0-4) 10/28/22 Urine Hyaline Casts (Auto) 0 /lpf (0-5) 10/28/22 Urine Epithelial Cells (Auto) 5-10 /lpf (0-5) H 10/28/22 Urine Bacteria (Auto) Negative (Negative) 10/28/22 Testing Electrocardiogram Date: 07/05/22 NSR, rate 76 bpm Stress Test Date: 04/21/19 Pharmacologic MPHR 103% Negative for inducible ischemia EF 55-60% No LV wall motion abnormality Grade I diastolic dysfunction No significant valvular pathology
[~2022-11-16 06:41] MED LIST changes: +ACETAMINOPHEN 500 MG TAB PO SCH; -ASPI81TA25 PO; -ATEN-173 PO; +BUPIVACAINE 0.25% PF 30 ML VIAL ONE; +BUPIVACAINE 0.5 % 5 MG/1 ML PF 10ML VIAL ONE; -CHOL1000 PO; +FAMOTIDINE 20 MG TAB PO SCH; +LR 500ML BOLUS, THEN 15ML/HR IV SCH; +LR 60ML/HR IV SCH; -OMEG10007 PO; +ROPIVACAINE 0.5% HCL/PF 150 MG, BUPIVACAINE 0.75% MPF 20 ML, EPINEPHrine 0.15 MG, Ketor... INFIL SCH; +Scopolamine 1 MG TDSY TD SCH; +Scopolamine CHECK PATCH PLACEMENT SCH; -TRAM-10 PO; +TRANEXAMIC ACID 1,000 MG **IV Intra-op IV SCH; +TRANEXAMIC ACID 1,000 MG **IV Pre-op IV SCH; +ceFAZolin 2000MG 2,000 MG/15 ML SYR IV SCH; +dexAMETHasone 4 MG TAB PO SCH
[2022-11-16] MEDS ORDERED: fentaNYL citrate PF 100 MCG/2 ML VIAL ONE (07:36)
[2022-11-16] MEDS ORDERED: PROPOFOL IV EMULSION 10 MG/ML 20 ML VIAL IV ONE ×3 (07:36→10:34)
[2022-11-16] MEDS ORDERED: ONDANSETRON INJ 2 MG/ML 2 ML VIAL ONE (07:36)
[2022-11-16] MEDS ORDERED: MIDAZOLAM HCL 1 MG/ML 2ML VIAL ONE (07:36)
[2022-11-16] MEDS ORDERED: fentaNYL citrate PF 100 MCG/2 ML VIAL IV PRN (08:20)
[2022-11-16] MEDS ORDERED: ePHEDrine sulfate 50 MG/ML AMP IV PRN (08:20)
[2022-11-16] MEDS ORDERED: ONDANSETRON INJ 2 MG/ML 2 ML VIAL IV PRN ×2 (08:20→11:16)
[2022-11-16] MEDS ORDERED: ATROPINE SULFATE 0.1 MG/ML 10ML SYR IV PRN (08:20)
--- NOTE | 2022-11-16 08:43 | History & Physical Bridge Note ---
Date of Service November 16, 2022 History & Physical Bridge Note I have examined the patient, reviewed the History & Physical and in the interval since the performance of the History & Physical I have noted the following changes of clinical significance: no changes noted
[2022-11-16] MEDS ORDERED: ORTHO JOINT ANESTHETIC ONE (09:14)
--- NOTE | 2022-11-16 11:12 | Operative Report ---
Post Operative Report Pre & Post Diagnosis Operation Date: 11/16/22 08:50 Pre-Op Diagnosis: Left Knee Osteoarthritis Post-Op Diagnosis: Left Knee Osteoarthritis I identified the patient and participated in the time-out.: Yes Procedure Operation Date: 11/16/22 08:50 Actual Procedures p Left Total Knee Arthroplasty(Left) - Vernon Hoyt MD Surgeon Vernon Hoyt MD Turkey Picker MELISSA Giraldo PA-C. No resident or fellow was available to assist. Estimated Blood Loss 50 Findings Consistent with Post-Op Diagnosis Specimens Left knee bone and soft tissue contents Anesthesia Type Spinal MAC Complications none Disposition Disposition: Recovery Room Indications 72-year-old female with left knee osteoarthritis refractory to conservative management. X-rays demonstrate tricompartmental osteophyte formation, joint space narrowing, and subchondral sclerosis. I had a long discussion with her about the risks and benefits of surgery, alternatives to surgery, and expected outcomes. After reviewing all these she elected to proceed with surgery. All questions were answered. Informed consent was signed. Description of Procedure Patient was identified in the preoperative holding area where the surgical site, left knee, was marked. Spinal anesthetic was placed by anesthesia. Patient was brought back to the operating room, placed on the operating room table, and IV sedation was administered. A bump was placed underneath the ipsilateral hip. All bony prominences were padded. Perioperative antibiotics and tranexamic acid were administered. Exam under anesthesia was performed. This demonstrated patient's range of motion to be 5 to 105 degrees. She was stable to varus and valgus stress test at 30 degrees. The surgical site was prepped and draped in the normal sterile fashion. Prior to incision a multidisciplinary timeout was called. All in the room were in agreement. We began by exsanguinating the limb with an Esmarch bandage. Tourniquet was inflated to 250 mmHg. A 14 cm long incision was made over the anterior aspect of the knee. I dissected through the subcutaneous tissues to the level of the fascia. Full-thickness flaps were raised above the fascia. A median parapatellar arthrotomy was made. Half the fat pad was excised. A medial release was performed with Bovie electrocautery on the proximal tibia. Synovitis in the knee and suprapatellar pouch was removed. The patella was then everted and held with 2 towel clips. The thickness of the patella was measured at 24 mm. Patellar resection was performed. Caliper showed the patella thickness now to be 14 mm. A size 41 trial was placed and had a great fit. The 3 drill holes were placed then the trial button was placed. The patellar thickness was now 25 mm which I was very happy with. The patellar trial was then removed, and the knee was flexed up. Retractors were placed to protect the MCL and LCL. Osteophytes were removed from the femoral condyles and intercondylar notch. The ACL and PCL were excised. Intramedullary drill guide was drilled into the femur. Distal femoral cutting guide was placed set at 5 degrees of valgus to resect 10 mm off the distal femur. Distal femoral resection was made without difficulty. The tibia was then exposed. The lateral meniscus was sharply excised. The tibial cutting jig was positioned in line with the tibial shaft in the coronal p crescencio and with 3 degrees of posterior slope in the sagittal plane to resect 9 mm off the less involved compartment. The jig was then pinned in position and the tibial cut was made. We then brought the knee into full extension. Lamina spreaders were placed. The medial meniscus was excised. The extension block was then placed for 5 mm thickness poly. This gave us full extension and excellent stability to varus and valgus stress. Next the extension block was removed, the knee was flexed up, collateral ligaments were protected, and the epicondylar axis and Whitesides line were marked out on the distal femoral cut. Femoral sizing guide was placed. External rotation was set at 3 degrees so that the posterior cut would be parallel with the epicondylar axis and perpendicular with Whitesides line. The patient sized to a size 7 femur. 2 pins were then placed through the jig into the distal femur. The jig was removed and the appropriately sized 4-in-1 cutting jig was placed over the pins, then fixated to the bone using threaded, headed pins. We confirmed that we would not notch the femur with our anterior cut. Our 4 cuts were then made. The cutting jig was removed. The flexion block was then placed with the knee held at 90 degrees. There was excellent stability to varus and valgus at 90 degrees with no gapping medially or laterally. Next the box cutting jig was placed on the distal femur. The box cut was made and the femoral trial was impacted into position. Lug holes were drilled in the distal femur. We then reexposed the tibia. The tibia was sized to a 7 for a f ixed-bearing component. The tibial tray with a 5 mm thickness polyethylene liner was placed on the cut tibial surface and the knee was brought through a full range of motion. There was excellent stability to varus valgus stress throughout a full range of motion, which was approximately 0-120 degrees. Bovie electrocautery was used to mando the tibia at the site where the tibial tray rested in full extension. We then flexed up the knee, removed the polyethylene liner, and pinned the tibial tray into position to match the cautery mando. The intramedullary drill followed by the keel punch were used to prepare the tibia. Next the trial components were removed. I then injected the posterior capsule and periosteum with the periarticular injection cocktail. The bone cuts were then irrigated and dried while the cement was mixed on the back table. The femoral component was cemented on first. Excess cement was removed. A lap sponge was placed over the femoral component for protection, then the tibia was subluxated anteriorly. The all polyethylene tibial component was then cemented in place. Again excess cement was removed. The knee was brought into full extension and held there until the cement cured. The patella was cemented and clamped. Dilute Betadine solution was then allowed to soak in the knee while the cement cured. Once the cement was fully cured, the knee was irrigated out, the tourniquet was let down and meticulous hemostasis was ensured. The knee was brought through a full range of motion. I was were very happy with the patella tracking and the stability. We then began to close. Interrupted 0 Vicryl suture was used to repair the patellar retinaculum in [id number] fashion. The quadriceps and patellar tendons were run with #1 Vicryl. The deep dermal layer was closed with interrupted 2-0 Vicryl. Dermabond and Zipline was used for the skin, followed by a Silverlon dressing. A compressive Apolinar wrap was placed and the knee was placed into a knee immobilizer. Patient's sedation was lifted and was transferred to recovery room in stable condition. Summary of implants: Depuy Attune Posterior Stabilized Cemented Femur, size 7 left Attune All-polyethylene tibial component, posterior stabilized 5 mm thickness, size 7 Attune patella medialized dome, size 41 2 batches of simplex high viscosity bone cement Postoperative course: Patient will be admitted to the floor for pain control and monitoring. Weightbearing as tolerated with a walker with no knee range of motion for 48 hours. Aspirin for DVT prophylaxis. I attest to the content of the Intraoperative Record and any orders documented therein. Any exceptions are noted below.
[2022-11-16] MEDS ORDERED: bisacodyL 10 MG SUPP PR PRN (11:16)
[2022-11-16] MEDS ORDERED: METOCLOPRAMIDE HCL INJ 5 MG/ML 2 ML VIAL IV PRN (11:16)
[2022-11-16] MEDS ORDERED: NALOXONE HCL 0.4 MG/1 ML VIAL/CARP IV PRN (11:16)
[2022-11-16] MEDS ORDERED: HYDROmorphone INJ 0.5 MG/0.5 ML SYR IV PRN (11:16)
[2022-11-16] MEDS ORDERED: ALUMINUM/MAGNESIUM SUSP 30 ML UDC PO PRN (11:16)
[2022-11-16] MEDS ORDERED: diphenhydrAMINE 50 MG/ML VIAL IV PRN (11:16)
[2022-11-16] MEDS ORDERED: MAGNESIUM HYDROXIDE SUSP 30 ML UDC PO PRN (11:16)
--- NOTE | 2022-11-16 11:16 | Operative Report ---
Post Operative Report Pre & Post Diagnosis Operation Date: 11/16/22 08:50 Pre-Op Diagnosis: Left Knee Osteoarthritis Post-Op Diagnosis: Left Knee Osteoarthritis I identified the patient and participated in the time-out.: Yes Procedure Operation Date: 11/16/22 08:50 Actual Procedures p Left Total Knee Arthroplasty(Left) - Vernon Hoyt MD Surgeon Vernon Hoyt MD Boiler Plant Operator MELISSA Giraldo PA-C. No resident or fellow was available to assist. Estimated Blood Loss 50 Findings Consistent with Post-Op Diagnosis Specimens None Description of Procedure I was present during the entire case assisting with positioning, prepping, draping, wound retraction, wound closure, dressing and immobilizer placement. No fellow present. Please see Dr. Hoyt procedure note for specifics of the case. I attest to the content of the Intraoperative Record and any orders documented therein. Any exceptions are noted below.
[2022-11-16] MEDS ORDERED: CLOTRIMAZOLE/BETAMETHASONE CR 15 GM TUBE EXT PRN (11:19)
[2022-11-16] MEDS ORDERED: TRIAMCINOLONE ACET 0.1% CR 15 GM TUBE TOP PRN (11:19)
--- NOTE | 2022-11-16 11:44 | XRay Report ---
XR knee LT 1 or 2V routine HISTORY: 72 years-old Female Surgical Post Op left knee arthroplasty COMPARISON: 07/19/2022 TECHNIQUE: 2 views of the left knee FINDINGS: Total joint arthroplasty with patellar resurfacing. Expected postoperative soft tissue swelling with deep tissue air. No acute fracture, dislocation or unexpected opaque foreign body. Anterior bandage m aterial. IMPRESSION: Total joint arthroplasty with expected postoperative changes. ACT 112: Negative or not required by law. The above report was generated using voice recognition software. It may contain grammatical, syntax o r spelling errors. Electronically signed by: Marshall Delgado M.D. 11/16/2022 11:42 AM
[2022-11-16] MEDS: SODIUM CHLORIDE 0.9% 1000ML 1,000 ML IV SCH (13:06)
[2022-11-16] MEDS: ACETAMINOPHEN 500 MG TAB PO SCH ×2 (13:07→20:54)
[2022-11-16] MEDS: KETOROLAC TROMETHAMINE 15 MG/ML VIAL IV SCH ×3 (13:07→23:09)
--- NOTE | 2022-11-16 16:43 | Anesthesiology Progress Note ---
Date of Service November 16, 2022 Anesthesia Post Procedure Vital Signs Vital Signs: Temp Pulse Pulse Resp BP Pulse Ox O2 Del Method 11/16/22 15:00 36.6 C 76 17 127/69 96 Room Air 11/16/22 14:00 36.5 C 70 16 136/70 95 Room Air 11/16/22 13:02 36.4 C L 73 17 148/81 H 97 Room Air 11/16/22 12:30 36.4 C L 69 16 145/77 H 96 Room Air 11/16/22 12:00 36.5 C 69 16 135/77 96 Room Air 11/16/22 11:40 36.4 C L 69 13 134/74 96 Room Air 11/16/22 11:35 62 13 118/70 94 Room Air 11/16/22 11:25 36.4 C L 61 14 134/67 99 Oxymask 11/16/22 11:15 36.4 C L 68 11 L 126/65 98 Oxymask 11/16/22 07:07 36.8 C 72 20 146/90 H 96 Room Air O2 Flow Rate 11/16/22 15:00 11/16/22 14:00 11/16/22 13:02 11/16/22 12:30 11/16/22 12:00 11/16/22 11:40 11/16/22 11:35 11/16/22 11:25 5 11/16/22 11:15 8 11/16/22 07:07 Pain Intensity Right Hip: Pain Intensity: 0 Transfer of Care Handoff Completed per policy Notes Mental Status: alert / awake / arousable and participated in evaluation Patient Amnestic to Procedure: Yes Nausea / Vomiting: adequately controlled Pain: adequately controlled Airway Patency, RR, SpO2: stable & adequate BP & HR: stable & adequate Hydration State: stable & adequate Neuraxial Anesthesia: was administered and sensory block is resolving Anesthetic Complications: no major complications apparent and Pt Satisfied with anesthetic care
[2022-11-16] MEDS: Scopolamine CHECK PATCH PLACEMENT SCH (17:20)
[2022-11-16] MEDS ORDERED: TRANEXAMIC ACID / 0.7% NACL 1,000 MG/100 ML BAG IV SCH (17:30)
[2022-11-16] MEDS: ceFAZolin 2000MG 2,000 MG/15 ML SYR IV SCH (17:51)
[2022-11-16] MEDS: oxyCODONE HCL IR 5 MG TAB (IMMEDIATE RELEASE) PO PRN (20:52)
[2022-11-16] MEDS: DOCUSATE SODIUM 100 MG CAP PO SCH (20:53)
[2022-11-16] MEDS ORDERED: SENNA 8.6 MG TAB PO SCH (21:00)
[2022-11-17] MEDS: SODIUM CHLORIDE 0.9% 1000ML 1,000 ML IV SCH (00:36)
[2022-11-17] MEDS: Scopolamine CHECK PATCH PLACEMENT SCH ×2 (00:38→08:52)
[2022-11-17] MEDS: ceFAZolin 2000MG 2,000 MG/15 ML SYR IV SCH (01:40)
[2022-11-17] MEDS: KETOROLAC TROMETHAMINE 15 MG/ML VIAL IV SCH (05:49)
[2022-11-17] MEDS: ACETAMINOPHEN 500 MG TAB PO SCH (05:49)
[2022-11-17] MEDS ORDERED: dexAMETHasone 4 MG TAB PO SCH (08:00)
[2022-11-17] MEDS: DOCUSATE SODIUM 100 MG CAP PO SCH (08:51)
[2022-11-17] MEDS ORDERED: MULTIVITAMIN TAB PO SCH (09:00)
[2022-11-17] MEDS ORDERED: ATENOLOL 25 MG TABLET PO SCH (09:00)
[2022-11-17] MEDS ORDERED: ASPIRIN 81 MG ECTAB PO SCH (09:00)
[2022-11-17] MEDS ORDERED: CALCIUM 600MG + VIT D 400 IU TAB PO SCH (09:00)
[2022-11-17] MEDS ORDERED: NON-FORMULARY MEDICATION (Amino Acids Tablet) PO SCH (09:00)
[2022-11-17] MEDS ORDERED: ADVANCED PROBIOTIC 1250 MG CAPSULE PO SCH (09:00)
[2022-11-17] MEDS: oxyCODONE HCL IR 5 MG TAB (IMMEDIATE RELEASE) PO PRN (09:01)
[2022-11-17 09:08] LABS: Hematocrit (blood only) 41.2 % (37.0-47.0); Hemoglobin 13.7 g/dl (12.0-16.0); Mean Corpuscular Hemoglobin 29.5 pg (25.0-34.0); Mean Corpuscular Hgb Conc 33.3 g/dL (32.0-36.0); Mean Corpuscular Volume 88.6 fL (80.0-100.0); Mean Platelet Volume 9.3 fL (9.4-12.4); Platelet Count 248 K/uL (130-400); RDW Coefficient of Variation 13.1 % (11.5-14.5); RDW Standard Deviation 42.4 fL (36.4-46.3); Red Blood Count 4.65 M/uL (4.20-5.40); White Blood Count 17.45 K/ul (4.8-10.8)
[2022-11-17 09:27] LABS: BUN Creatinine Ratio 19.8 (10-20); Calcium 8.4 mg/dl (8.5-10.1); Creatinine Clr Calc Pharmacy 72.3 ml/min; Est GFR (African American) 73.1 ml/min; Potassium 4.2 mmol/L (3.5-5.1)
--- NOTE | 2022-11-17 10:55 | Orthopedic Progress Note ---
Date of Service November 17, 2022 Assessment & Plan (1) S/P total knee arthroplasty: Plan: Weightbearing as tolerated with walker assistance and immobilizer for the first 48 hours postoperatively. Keep Silverlon dressing in place Pain control with p.o. medication DVT prophylaxis with aspirin and JORGE ALBERTO stockings Ice with easy wrap Plan is to discharge home this morning with in-home physical therapy to begin later this weekend. Follow-up at [facility] orthopedics as previously scheduled. With questions contact our clinic at [phone]. Admission and Anticipated Discharge Date Admission Date: November 16, 2022 Subjective This 72-year-old female is day 1 status post left total knee arthroplasty. She states she is doing very well. She is already dressed and ready to go home. She has completed PT and OT this morning. She states she is set up with in-home physical therapy and thinks that they begin her therapy on Sunday. Currently ozzy selby denies chest pain, shortness of breath, fever, chills, sweats, numbness or tingling in her left lower extremity or any difficulty voiding. Review of Systems Review of Systems: All systems reviewed & are unremarkable except as noted in Subjective Physical Exam Physical Exam: Left knee: Outer dressing was removed. Distal portion of the Silverlon is slightly saturated so I briefly enforced it with another Silverlon dressing. Patient is able to easily perform active straight leg raise test and actively dorsi and plantarflex her foot. Quad strength is 3+ out of 5. Active knee range of motion is from 0 to degrees of extension to about 80 degrees of flexion. She is able to easily transition from a seated to a standing position and walked down the chaudhry with the aid of her walker and knee immobilizer in place without difficulty. She is neurovascularly intact in the left lower extremity. Results & Data Vital Signs (Past 12 Hours) Vital Signs Temp Pulse Pulse Resp BP Pulse Ox O2 Del Method 11/17/22 07:45 36.6 C 68 18 127/77 95 Room Air 11/17/22 06:58 36.4 C L 65 16 113/74 96 Room Air 11/17/22 03:04 36.7 C 66 18 132/76 97 Room Air 11/16/22 22:53 36.5 C 65 20 132/83 96 Room Air Diagnostic Findings Laboratory Results WBC 17.45 K/ul (4.8-10.8) H 11/17/22 08:13 RBC 4.65 M/uL (4.20-5.40) 11/17/22 08:13 Hgb 13.7 g/dl (12.0-16.0) 11/17/22 08:13 Hct 41.2 % (37.0-47.0) 11/17/22 08:13 MCV 88.6 fL (80.0-100.0) 11/17/22 08:13 MCH 29.5 pg (25.0-34.0) 11/17/22 08:13 MCHC 33.3 g/dL (32.0-36.0) 11/17/22 08:13 RDW Std Deviation 42.4 fL (36.4-46.3) 11/17/22 08:13 RDW Coeff of Martha 13.1 % (11.5-14.5) 11/17/22 08:13 Plt Count 248 K/uL (130-400) 11/17/22 08:13 MPV 9.3 fL (9.4-12.4) L 11/17/22 08:13 Sodium 136 mmol/L (136-145) 11/17/22 08:13 Potassium 4.2 mmol/L (3.5-5.1) 11/17/22 08:13 Chloride 104 mmol/L (98-107) 11/17/22 08:13 Carbon Dioxide 25 mmol/L (21-32) 11/17/22 08:13 Anion Gap 7 (3-11) 11/17/22 08:13 BUN 18 mg/dl (6-23) 11/17/22 08:13 Creatinine 0.91 mg/dl (0.6-1.2) 11/17/22 08:13 Est Cr Clr Drug Dosing 72.3 ml/min 11/17/22 08:13 Est GFR ( Amer) 73.1 ml/min 11/17/22 08:13 Est GFR (Non-Af Amer) 63.0 ml/min 11/17/22 08:13 BUN/Creatinine Ratio 19.8 (10-20) 11/17/22 08:13 Glucose 125 mg/dl (70-99(Fasting)) H 11/17/22 08:13 Calcium 8.4 mg/dl (8.5-10.1) L 11/17/22 08:13 SARS-CoV-2, RNA, NAAT NEGATIVE (NEGATIVE) 11/16/22 06:55 Blood Type B Positive 11/16/22 07:01 Antibody Screen NEGATIVE 11/16/22 07:01 Impressions Knee X-Ray 11/16/22 11:18 XR knee LT 1 or 2V routine HISTORY: 72 years-old Female Surgical Post Op left knee arthroplasty COMPARISON: 07/19/2022 TECHNIQUE: 2 views of the left knee FINDINGS: Total joint arthroplasty with patellar resurfacing. Expected postoperative soft tissue swelling with deep tissue air. No acute fracture, dislocation or unexpected opaque foreign body. Anterior bandage material. IMPRESSION: Total joint arthroplasty with expected postoperative changes. ACT 112: Negative or not required by law. The above report was generated using voice recognition software. It may contain grammatical, syntax or spelling errors. Electronically signed by: Marshall Delgado M.D. 11/16/2022 11:42 AM
--- NOTE | 2022-11-17 11:00 | Discharge Summary ---
Date of Service November 17, 2022 Admission HPI Per Admitting Provider HPI: This 72-year-old female presents clinic today for preoperative history and physical. Patient was initially scheduled to undergo surgery on August 03, 2022 but it was canceled due to her having a dental abscess. Patient has had pain off and on her left knee for many years. States that about a year ago the pain became much worse. 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 She states that in her free time she did do a lot of walking with which seem to exacerbate her pain and she started to wear a knee brace. Patient states that she has had corticosteroid injections and then physical therapy. She is also used nonsteroidal agents but her knee pain persists. Review Of Systems: A 12 point review of systems is performed and is unremarkable except for those things stated in the HPI and past medical history. Past Medical History: Problems: Mass of right hand Hypertension GERD Ventral hernia Obesity History of leukemia Procedure History Procedure Procedure Date Comments Nasal reconstruction Hernia repair Hand surgery Right total knee arthroplasty Allergies and Sensitivities: iodinated radiocontrast dyes(unknown) traMADol(unknown) sulfa drugs(unknown) Current Home Meds: (Last Updated 10/25 08:54) atenolol (atenolol 25 mg oral tablet) bifidobacterium-lactobacillus (Probiotic Formula oral capsule) cholecalciferol (Vitamin D3) cholecalciferol (Vitamin D3 50 mcg (2000 intl units) oral tablet, chewable) ibuprofen (IBU) 600 mg menaquinone (K2 90 mcg/0.5 mL oral liquid) Admission Exam Per Admitting Provider Physical Exam: (relevant to the procedure, including heart and lung evaluation) General: Alert and oriented x3 with proper grooming and hygiene Eyes: Pupils are equal and reactive to light with accommodation. Extraocular lids are intact Throat: Posterior oropharynx clear with some edema, erythema or exudate. Dentition is appropriate. Cardiac: Regular rate and rhythm with no murmurs or gallops appreciated Lungs: Clear to auscultation throughout with no wheezing, rales or rhonchi Abdomen: Obese, nondistended, nontender with NABS Extremities: Left knee; range of motion is from 2 degrees of extension to about 110 degrees of flexion. She experiences medial and lateral joint tenderness when knee is palpated in flexed position. There is audible crepitation with passive range of motion. Patient has no laxity with varus or valgus stressing. AP drawer sign Brian test are negative. Her patella is not mobile due to arthritic change within the patellofemoral joint. She has neurovascular intact in the left lower extremity. Neuro: Cranial nerves II through XII intact no motor or sensory deficit Skin: Normal in appearance no open skin areas or discharge Principal Diagnosis Left knee osteoarthritis Discharge Exam Left knee: Outer dressing was removed. Distal portion of the Silverlon is slightly saturated so I briefly enforced it with another Silverlon dressing. Patient is able to easily perform active straight leg raise test and actively dorsi and plantarflex her foot. Quad strength is 3+ out of 5. Active knee range of motion is from 0 to degrees of extension to about 80 degrees of flexion. She is able to easily transition from a seated to a standing position and walked down the chaudhry with the aid of her walker and knee immobilizer in place without difficulty. She is neurovascularly intact in the left lower extremity. Discharge Data Allergies Allergy/AdvReac Type Severity Reaction Status Date / Time clarithromycin Allergy Intermediate RASH/HIVES Verified 11/16/22 07:16 Iodinated Contrast Media Allergy Intermediate HIVES/ITCHING Verified 11/16/22 07:16 ("CARDIAC CT SCAN DYE") Sulfa (Sulfonamide Allergy Intermediate rash Verified 11/16/22 07:16 Antibiotics) tramadol AdvReac "weird in Verified 11/16/22 07:16 my head" Procedures Performed Operation Date: 11/16/22 08:50 Actual Procedures p Left Total Knee Arthroplasty(Left) - Vernon Hoyt MD Ordered Studies 11/16/22 05:00 US - OR guided needle placemen Routine Hospital Course (1) S/P total knee arthroplasty: Patient had an uneventful overnight stay following left total knee arthroplasty. She is doing very well this morning. She has completed physical therapy and Occupational Therapy and is ready to be discharged home as soon as possible. Weightbearing as tolerated with walker assistance and immobilizer for the first 48 hours postoperatively. Keep Silverlon dressing in place Pain control with p.o. medication DVT prophylaxis with aspirin and JORGE ALBERTO stockings Ice with easy wrap Plan is to discharge home this morning with in-home physical therapy to begin later this weekend. Follow-up at [facility] orthopedics as previously scheduled. With questions contact our clinic at [phone]. Total Time Total Time Spent Total Time Spent (In Minutes): 20 minutes Discharge Plan Discharge Items Patient Disposition: Home - Home Health Services Reason For Visit: Left Knee Osteoarthritis Discharge Diagnosis: Left knee osteoarthritis Activity: As commented below Lifting: None Bathing: Keep incision dry Bathing Comment: May shower tomorrow Sexual Activity: Wait until after follow-up appointment Exercise/Sports: Wait until after follow-up appointment Driving/Machine Use: No driving until cleared by ancillary specialist Weightbearing: Left weightbearing Weightbearing Comment: As tolerated with walker assistance and immobilizer for 4 first 48 hours Non-emergency contact: Surgeon Call non-emergency contact if: you have any medication questions, your pain is not controlled, your temperature is above 101.5, your wound has increased drainage and your wound pain has increased Follow-up/Referrals: Eron Jack, [Primary Care Provider] - Diet: Regular Addtl Attending Provider Instructions: Post-operative Instructions Dear Patient and Family/Friends, Before you are discharged from the hospital, it is important to know what to expect when you get home after surgery. To that end, we have created this sheet of discharge instructions which covers many commonly asked questions. Make sure you go through this sheet in its entirety with your nurse before you are discharged. Please note that we will go over the specifics of your surgery and recovery when you return for your first post-operative visit. Sincerely, Dr. Hoyt Medications 1. Oxycodone 5 mg: Take 1-2 tabs every 4-6 hours as needed for postoperative pain. A prescription for this will be sent to your pharmacy. 2. Diclofenac sodium 75 mg: Take 1 tab twice daily for the first 30 days postoperatively for pain and inflammation relief. A prescription for this will also be sent to your pharmacy with 1 refill. 3. Aspirin 81 mg: Take 1 tab twice daily for the first 30 days postoperatively for blood clot prevention. Please purchase this medication 4. Extra strength Tylenol 500 mg: Take 2 tabs every 6-8 hours as needed for additional supplemental pain control. Please purchase. Pain Expect to be in a fair amount of pain after surgery. Remember, our goal is not to eliminate your pain, but to make it tolerable. It is a good idea to stay ahead of your pain by taking the medications you were prescribed once you get home. Typically, the pain starts improving 3-7 days after surgery. You should start weaning off the narcotic pain medication (oxycodone, hydrocodone, hydromorphone, morphine) as soon as your pain improves. Please call our office if your pain is not adequately controlled. Ice Ice your operative site at least 5 times a day for 15-30 minutes at a time. Make sure you have a thin cloth between the ice or cooling unit and your skin to prevent parkinson bite. This is especially important if you received a nerve block. Continue icing your operative site for the first 5-7 days after surgery, then as needed. Diet/Nausea/Vomiting Start by drinking clear liquids and eating crackers. If you can tolerate this, then you may resume your normal diet. If you feel nauseated or vomit, take Zofran/ondansetron (if prescribed). Please call our office if you have int ractable nausea or vomiting, or, if after hours, you may go to the Emergency Room for help. Constipation Constipation is a common side effect of narcotic pain medication. If you have not had a bowel movement within 2 days after surgery, we recommend purchasing an over the counter laxative such as Milk of Magnesia, Dulcolax, or Miralax from a local pharmacy, and taking it as instructed. Call our clinic if any questions. Slings and Braces If you were placed in a sling or brace, it must be worn at all times, including sleep. You may remove your sling or brace for physical therapy, home exercises, and showering. The length of time you will be in your brace and range of motion restrictions depends on what surgery you had; these details will be reviewed at your first post-operative appointment. Nerve block The anesthesia team sometimes places a nerve block to help with post-operative pain control. This results in significant numbness and inability to move the extremity. The nerve block usually wears off in 8-12 hours, but sometimes can last up to 24 hours. Please call our office if you are still unable to move your extremity after 24 hours, unless you received a pain pump to take home. Nerve blocks typically wear off quickly, so start taking pain medication as soon as you start feeling soreness near your surgical site. Weight bearing and Range of Motion. Do not bear any weight through your operative extremity immediately after surgery. If you had upper extremity surgery, do not lift anything with that arm. If you are in a knee brace, keep it locked in place until your follow-up. We will discuss your weight bearing, range of motion, and lifting restrictions in detail at your first post-operative appointment. Continuous Passive Motion (CPM) Machine If you were prescribed a CPM machine, it will start after your first post- operative appointment, at which time we will give you instructions on the range of motion settings and duration of treatment Physical therapy You will be given a prescription for physical therapy or occupational therapy at your first post-operative appointment. Typically, patients start therapy within 1 week of surgery Wound care and showering We will inspect your wound at your first post-operative visit, and may do a dressing change at that time. Most patients will be in a water-proof dressing that is removed 14 days after surgery. It is normal to see some dried blood on the dressing. Do not remove your dressing, paper strips or sutures yourself unless you are given permission. Showering is allowed the day after surgery. Do not scrub or remove any dressings. The wound should not be submerged underwater (i.e. in a bathtub or pool) until 4 weeks after surgery JORGE ALBERTO stockings If you were given white stockings, these are to be worn at all times except to shower (on both legs) for the first 2 weeks after surgery. Driving You may not drive while taking narcotic pain medication or while in a cast, splint, sling or brace. You, the patient, need to make the final determination about when you are safe to drive, however, the earliest you may consider driving after surgery is below: Hand/Wrist/Elbow Surgery: 3 days Shoulder Surgery: 2 weeks Hip,/Knee/Ankle Surgery: 4 weeks Fracture repair: 6 weeks Return to Work Your return to work depends on what surgery was done and what type of work you do. Please bring any paperwork your employer needs completed to your first post-operative visit. Also, bring a description of your job duties, as this helps us to understand what risks you may face at work. Travel Avoid long distance travel (greater than 1 hour) in airplanes and cars for the first 6 weeks after surgery. If you must travel, you need to have a Doppler ultrasound done before you travel to rule out a blood clot in your legs. Follow-up You should have a follow-up appointment already scheduled 1-2 days after surgery. If not, please contact our office to make this appointment before you leave the hospital. When to call the office It is normal to have swelling and bruising in the limb that was operated on. This will improve with time. It is also normal to have fevers for the first 2 days after surgery. Reasons you should call your doctor include: Uncontrolled pain; Nausea, vomiting, or constipation that does not improve with medication; Fevers over 101.5, chills, sweats; Drainage or bleeding from the wound; Foul odor; Spreading areas of redness; Any other concerns Pending Studies at Discharge: No Stand-Alone Forms: My [facility] Medications and DC Order Prescriptions: New aspirin 81 mg Tablet,Delayed Release (Dr/Ec) 81 mg PO BID 30 Days Qty: 60 0RF acetaminophen [Tylenol Extra Strength] 500 mg Tablet 1,000 mg PO Q8 30 Days Qty: 180 0RF oxycodone 5 mg Tablet 5 - 10 mg PO Q4H PRN (Reason: Postoperative pain control) Qty: 28 0RF diclofenac sodium 75 mg tablet,delayed release (DR/EC) 75 mg PO BID 30 Days Qty: 60 1RF Continued calcium-vitamin D3-vitamin K [Citracal-D3 Soft Chew] 500 mg-1,000 unit-40 mcg tablet,chewable 1 tab PO QAM Adult 50 Plus Probiotic 4 billion cell capsule 4,000 mmu cells PO DAILY Rx Instructions: administer with a meal triamcinolone acetonide 0.1 % cream 1 applic topical DAILY PRN (Reason: ud) estradiol 0.01 % (0.1 mg/gram) cream 1 appful vaginal DAILY PRN (Reason: ud) Rx Instructions: for 14 days atenolol 25 mg Tablet 25 mg PO QAM clotrimazole-betamethasone 1-0.05 % cream 1 applic topical BID PRN (Reason: ud) Rx Instructions: apply to affected area for 4 weeks until healed amino acids Tablet 1 tab PO QAM Medical Marijuana 1 dose PO UD PRN (Reason: Pain) Discontinued ibuprofen [Advil Liqui-Gel] 200 mg capsule 800 mg PO QAM Admission Data Admit Date/Time: 11/16/22 11:16 Attending Provider: Vernon Hoyt Admit Provider: Vernon Hoyt Primary Care Provider: Eron Jack
== END 2022-11-17 13:20 | disposition home health service (06) ==
LOC: 3W 06:41 → ASU 06:41
DX: Z20.822 Contact with and (suspected) exposure to COVID-19; Z91.041 Radiographic dye allergy status; M17.12 Unilateral primary osteoarthritis, left knee; Z88.2 Allergy status to sulfonamides; Z79.899 Other long term (current) drug therapy; Z88.1 Allergy status to other antibiotic agents